=== PATIENT | male | born 1980 | race Caucasian/White ===

== ENCOUNTER 2018-11-15 12:54 | Inpatient (IN) | payer OTHER, MEDICAID ==
[~2018-11-15] VITALS: Ht 177.8 cm; Wt 94.3 kg
--- NOTE | 2018-11-15 12:55 | NUR ---
PT BIB [facility] TO ER BED 11
[2018-11-15 12:57] VITALS: BP 89/42
--- NOTE | 2018-11-15 13:05 | NUR ---
[facility] FOR [facility]YP[facility]ION BP 84/52. PER EMS PT AAOX4 , BLOOD SUGAR 128. EKG NSR. BP 100/50 ON ARRIVAL. PT AAOX 4. HEMODIALYSIS AREA AT RIGHT UPPER CHEST. OLD HEMODIALYSIS SHUNT ON LEFT FOREARM. PT C/O OF SOB. DENIES N/V/D; HR EVEN AND REGULAR; PT DENIES ANY CP OR COUGH AT THIS TIME; PATIENT STATES PAIN OF 0/10 AT THIS TIME; PATIENT POSITIONED FOR COMFORT; HOB ELEVATED; BEDRAILS UP X2; BED DOWN. ER MADE AWARE OF PT STATUS. Addendum: 11/15/18 at 1352 by [facility] HEMODIALYSIS Jose Alberto Cooper F.
--- NOTE | 2018-11-15 13:05 | NUR ---
Note undone in [facility] - 11/15/18 at 1347 by [facility] FOR [facility] BP 84/52. PER EMS PT AAOX4 , BLOOD SUGAR 128. EKG NSR. BP 100/50 ON ARRIVAL. PT AAOX 4. DIALYSIS AREA RIGHT UPPER CHEST. DENIES N/V/D; SKIN IS PINK/WARM/DRY; AAOX4 WITH EVEN AND STEADY GAIT; HR EVEN AND REGULAR; PT DENIES ANY FEVER, CP, SOB, OR COUGH AT THIS TIME; PATIENT STATES PAIN OF 0/10 AT THIS TIME; VSS; PATIENT POSITIONED FOR COMFORT; HOB ELEVATED; BEDRAILS UP X2; BED DOWN. ER MADE AWARE OF PT STATUS. Addendum: 11/15/18 at 1344 by [email or web address] Amendment undone in [facility] - 11/15/18 at 1347 by [facility] HEMODIALYSIS Jose Alberto Cooper F.
[2018-11-15 13:55] LABS: BASOPHILS % (AUTO) 0.4 % (0.0-2.0); EOSINOPHILS # (AUTO) 0.2 K/uL (0-0.4); EOSINOPHILS % (AUTO) 1.5 % (0.0-4.0); HEMATOCRIT 24.3 % (36-52); LYMPHOCYTES # (AUTO) 1.1 K/uL (2.0-11.5); LYMPHOCYTES % (AUTO) 11.3 % (20.5-51.1); MEAN CORPUSCULAR HEMOGLOBIN 32 pg (27-31); MEAN CORPUSCULAR HGB CONC 33 g/dL (33-37); MEAN CORPUSCULAR VOLUME 96.2 fL (80-94); MONOCYTES # (AUTO) 1.1 K/uL (0.8-1.0); MONOCYTES % (AUTO) 10.8 % (1.7-9.3); NEUTROPHILS # (AUTO) 7.7 K/uL (1.8-7.7); PLATELET COUNT (AUTO) 211 K/uL (140-450); RED BLOOD CELL COUNT(AUTO) 2.52 MIL/uL (4.20-6.10); RED CELL DISTRIBUTION WIDTH 16.7 % (11.6-13.7); WHITE BLOOD COUNT (AUTO) 10.1 K/uL (4.8-10.8)
[2018-11-15] MEDS ORDERED: ACETAMINOPHEN 325 MG TAB PO ONE (13:55)
[2018-11-15 14:24] LABS: PROTHROMBIN TIME 10.6 secs (10.8-13.4)
--- NOTE | 2018-11-15 14:25 | NUR ---
PT'S TEMPRATURE IS 99.9.
[2018-11-15 15:04] LABS: CREATINE KINASE MB 1.3 ng/mL (0-3.6)
[2018-11-15 15:15] LABS: ANION GAP 13.8 (8-16); CARBON DIOXIDE 27.9 mmol/L (21-32); POTASSIUM 4.7 mmol/L (3.5-5.1)
[2018-11-15 15:17] LABS: CREATININE 4.7 mg/dL (0.7-1.3)
--- NOTE | 2018-11-15 15:17 | NUR ---
RECEIVED CRITICAL REPORT CREATINE 4.67 FROM JEAN. MEDELLIN MADE AWARE.
[2018-11-15 15:18] LABS: ALBUMIN 2.6 g/dL (3.4-5.0); TOTAL BILIRUBIN 1.4 mg/dL (0.0-1.0)
[2018-11-15] MEDS ORDERED: IBUPROFEN 600 MG TAB PO ONE (16:05)
--- NOTE | 2018-11-15 16:05 | NUR ---
pt's temprature 100.4. made aware.
--- NOTE | 2018-11-15 16:05 | NUR ---
Moni luis in [facility] - 11/15/18 at 1605 by THOMAS pt's temprature 100.4
[2018-11-15] MEDS ORDERED: LEVOFLOXACIN 750 MG/D5W PREMIX 150 ML IV ONE (16:10)
--- NOTE | 2018-11-15 16:31 | NUR ---
pt unable to provide medication list at this time, pt states he started isosorbide and colchicine but does not know dosage.
[2018-11-15] MEDS: NACL 0.9% 1,000 ML IV SCH (16:43)
[2018-11-15] MEDS ORDERED: HYDROcodone/APAP 7.5/325 MG 1 TAB PO PRN (16:45)
[2018-11-15] MEDS ORDERED: DOCUSATE SODIUM 100 MG GELCAP PO PRN (16:45)
[2018-11-15] MEDS ORDERED: MORPHINE SULFATE 2 MG/ML SYR IVP PRN (16:45)
[2018-11-15] MEDS ORDERED: ONDANSETRON 4 MG/2 ML VIAL IM/IVP PRN (16:45)
--- NOTE | 2018-11-15 17:08 | NUR ---
PT TAKEN TO THE FLOOR AT THIS TIME
[2018-11-15 17:13] LABS: MAGNESIUM 1.8 mg/dL (1.8-2.4); PHOSPHORUS 2.4 mg/dL (2.5-4.9); THYROID STIMULATING HORMONE 2.88 uIU/mL (0.34-3.74)
--- NOTE | 2018-11-15 17:20 | NUR ---
Patient will be admitted to care of DR RAMOS. Admited to TELE. Will go to [id number]. Belongings list completed. Report to SENIA SNELL. PT SENT WITH ROBEL , MARIA VICTORIA SWENSON, AND IGNACIO.
[2018-11-15] MEDS ORDERED: ALBUTEROL SULFATE/IPRATROPIU 3 ML SOL IH PRN (17:25)
[2018-11-15] MEDS ORDERED: SODIUM PHOS / POTASSIUM PHOS 1 PKT PDR PO SCH (18:00)
[2018-11-15 18:10] VITALS: BP 107/59
[2018-11-15] MEDS ORDERED: IBUP-1842 PO (18:47)
[2018-11-15] MEDS ORDERED: APIX5TAB PO (18:47)
[2018-11-15] MEDS ORDERED: SYN.05 PO (18:47)
[2018-11-15] MEDS ORDERED: COLC0.6C PO (18:47)
[2018-11-15] MEDS ORDERED: PRED5TAB8 PO (18:47)
--- NOTE | 2018-11-15 19:20 | NUR ---
GAVE BED SIDE REPORT TO STATIONARY STEAM ENGINEER RN. PT IN STABLE CONDITION. LEVAQUIN ITCHY AT SITE. DC LEVAQUIN AND STARTED ROCEPHIN. MADE AWARE. CHANGES MADE TO START ROCEPHIN INSTEAD
--- NOTE | 2018-11-15 19:21 | NUR ---
REPORT RECEIVED FROM AM NURSE AT BEDSIDE. PT IN STABLE CONDITION. AAOX4. INTRODUCED SELF TO PT. BOARD UPDATED. NO COMPLAINTS OF PAIN. NO SOB ON 2L O2 VIA NC. AFEBRILE. PT HAS COMPLAINTS OF ANXIETY. WILL NOTIFY . IV SITE R HAND 18G RUNNING NS@40ML/HR PATENT AND INTACT. SKIN WARM, DRY, AND INTACT WITH NO OPEN WOUNDS. BED LOCKED IN LOW POSITION. CALL NGUYEN WITHIN REACH. SAFETY PRECAUTION IN PLACE. ALL NEEDS MET AT THIS TIME.
[2018-11-15 20:00] VITALS: BP 91/44
[2018-11-15] MEDS ORDERED: AZITHROMYCIN 500 MG INJ VIAL IV ONE (20:15)
[2018-11-15] MEDS: AZITHROMYCIN 250 MG in DEXTROSE 5% 250 ML IV SCH (20:31)
--- NOTE | 2018-11-15 20:31 | NUR ---
ELIQUIS GIVEN PO. AZITHROMYCIN HUNG AND RUNNING. PT TOLERATED WELL. BS 200. 2 UNITS OF HUMALOG GIVEN.
[2018-11-15] MEDS: APIXABAN 2.5 MG TAB PO SCH (20:33)
[2018-11-15] MEDS: BLOOD GLUCOSE MONITORING 1 DEV DEV FS SCH (20:38)
[2018-11-15] MEDS: INSULIN LISPRO SLIDING SCALE 100 UNITS/ML VIAL SUBQ PRN (20:44)
--- NOTE | 2018-11-15 22:04 | NUR ---
BENADRYL GIVEN PO. PT TOLERATED WELL.
--- NOTE | 2018-11-15 23:30 | NUR ---
VS STABLE. NO S/S OF DISTRESS NOTED. NO COMPLAINTS OF PAIN. NO SOB. AFEBRILE. WILL CONTINUE TO MONITOR.
[2018-11-16] VITALS (7 sets, daily range): BP systolic 98–148; BP diastolic 62–86
--- NOTE | 2018-11-16 01:20 | NUR ---
PT SLEEPING COMFORTABLY IN BED BUT AROUSABLE. NO S/S OF DISTRESS NOTED. RESPIRATIONS EVEN, UNLABORED, AND WNL. WILL CONTINUE TO MONITOR.
--- NOTE | 2018-11-16 03:10 | NUR ---
PT SLEEPING BUT AROUSABLE. NO S/S OF DISTRESS NOTED. VS STABLE. SCD'S PLACED. WILL CONTINUE TO MONITOR.
[2018-11-16] MEDS: BLOOD GLUCOSE MONITORING 1 DEV DEV FS SCH ×4 (05:39→21:20)
--- NOTE | 2018-11-16 05:39 | NUR ---
BS 160. 2 UNITS OF HUMALOG GIVEN.
[2018-11-16] MEDS: INSULIN LISPRO SLIDING SCALE 100 UNITS/ML VIAL SUBQ PRN ×4 (05:42→21:29)
[2018-11-16] MEDS ORDERED: DILT-135 PO (06:32)
[2018-11-16] MEDS ORDERED: CARV25TA PO (06:32)
[2018-11-16] MEDS ORDERED: HYDR100T79 PO ×2 (06:32→15:50)
[2018-11-16] MEDS ORDERED: ISOS10TA9 PO (06:32)
[2018-11-16 07:07] LABS: ANION GAP 14.9 (8-16); POTASSIUM 4.9 mmol/L (3.5-5.1)
[2018-11-16 07:11] LABS: BASOPHILS % (AUTO) 0.4 % (0.0-2.0); EOSINOPHILS # (AUTO) 0.1 K/uL (0-0.4); EOSINOPHILS % (AUTO) 1.8 % (0.0-4.0); HEMOGLOBIN 7.7 g/dL (12.0-18.0); LYMPHOCYTES # (AUTO) 1.2 K/uL (2.0-11.5); LYMPHOCYTES % (AUTO) 14.4 % (20.5-51.1); MEAN CORPUSCULAR HEMOGLOBIN 33 pg (27-31); MEAN CORPUSCULAR HGB CONC 33 g/dL (33-37); MEAN CORPUSCULAR VOLUME 97.5 fL (80-94); MONOCYTES # (AUTO) 0.9 K/uL (0.8-1.0); MONOCYTES % (AUTO) 11.4 % (1.7-9.3); NEUTROPHILS # (AUTO) 5.9 K/uL (1.8-7.7); PLATELET COUNT (AUTO) 192 K/uL (140-450); RED BLOOD CELL COUNT(AUTO) 2.36 MIL/uL (4.20-6.10); RED CELL DISTRIBUTION WIDTH 16.3 % (11.6-13.7); WHITE BLOOD COUNT (AUTO) 8.2 K/uL (4.8-10.8)
--- NOTE | 2018-11-16 07:11 | NUR ---
RECEIVED BEDSIDE REPORT FROM SENIA DIAMOND. PT STABLE, AWAKE, ALERT AND ORIENTED X4. NO SIGNS OF DISTRESS NOTED. DENIES PAIN OR SOB. PT SITTING AT THE BEDSIDE CHAIR. NO REDNESS, SWELLING, OR INFLAMMATION NOTED ON IV SITE. CALL NGUYEN WITHIN REACH. BED IN LOWEST POSITION. SAFETY MEASURES IN PLACE. PLAN OF CARE REVIEWED.
--- NOTE | 2018-11-16 07:12 | NUR ---
REPORT GIVEN TO AM NURSE AT BEDSIDE. PT IN STABLE CONDITION.
[2018-11-16 07:18] LABS: MAGNESIUM 1.7 mg/dL (1.8-2.4); PHOSPHORUS 4.2 mg/dL (2.5-4.9)
--- NOTE | 2018-11-16 08:10 | NUR ---
PATIENT HAS BEEN SCREENED AND CATEGORIZED HIGH NUTRITION RISK. PATIENT WILL BE SEEN WITHIN 1-2 DAYS OF ADMISSION. 11/16/18-11/17/[address]
[2018-11-16] MEDS: IBUPROFEN 400 MG TAB PO SCH ×2 (09:00→09:45)
[2018-11-16] MEDS: SODIUM PHOS / POTASSIUM PHOS 1 PKT PDR PO SCH ×2 (09:00→09:44)
--- NOTE | 2018-11-16 09:22 | NUR ---
MADE DR CALDERON AWARE OF MAGNESIUM 1.7. WILL PUT IN ORDER.
[2018-11-16] MEDS: COLCHICINE 0.6 MG TAB PO SCH (09:43)
[2018-11-16] MEDS: LACTOBACILLUS RHAMNOSUS GG 1 EACH CAP PO SCH (09:45)
[2018-11-16] MEDS: LEVOTHYROXINE 0.05 MG TAB PO SCH (09:45)
[2018-11-16] MEDS: APIXABAN 2.5 MG TAB PO SCH ×2 (09:48→21:28)
[2018-11-16] MEDS: predniSONE 5 MG TAB PO SCH (09:51)
--- NOTE | 2018-11-16 10:00 | NUR ---
PT REFUSED PHOS NAK AND IBUPROFEN, ADMINISTERED ALL OTHER SCHEDULED MEDICATIONS, PT TOLERATED WELL. NO OTHER NEEDS AT THIS TIME. FAMILY AT THE BEDSIDE. Addendum: 11/16/18 at 1019 by Imelda Harris RN PT REFUSED IVF, MADE DR CALDERON AWARE. PT SALINE LOCKED AT THIS TIME.
--- NOTE | 2018-11-16 10:10 | NUR ---
DR CALDERON AND FAMILY AT BEDSIDE.
[2018-11-16] MEDS ORDERED: MAGNESIUM OXIDE 400 MG TAB PO SCH (11:00)
[2018-11-16] MEDS: FLUTICASONE NASAL 50 MCG/ACTUATION 16 GM BTL NS SCH (11:19)
--- NOTE | 2018-11-16 11:25 | NUR ---
ADMINISTERED SCHEDULED MEDICATIONS, PT TOLERATED WELL. NO OTHER NEEDS AT THIS TIME.
--- NOTE | 2018-11-16 12:05 | NUR ---
JUDICIAL REGISTRAR KAYLEE AT BEDSIDE.
[2018-11-16] MEDS: SODIUM FERRIC GLUCONATE 125 MG in NACL 0.9% 100 ML IV SCH (12:30)
--- NOTE | 2018-11-16 12:30 | NUR ---
ADMINISTERED SCHEDULED MEDICATION AND PRN BENADRYL FOR ITCHING. ADMINISTERED 8 UNITS HUMALOG FOR BG 329. PT TOLERATED WELL. NO OTHER NEEDS AT THIS TIME.
--- NOTE | 2018-11-16 12:47 | NUR ---
PER DR ALEJANDRO'S HEMODIALYSIS ORDER, ORDER PUT IN FOR ALBUMIN HUMAN 25% ONCE AND HEPARIN SODIUM 10,000 UNITS FOR HEMODIALYSIS PORT ONCE. MAMMAL KEEPER KAYLEE BAZZI.
[2018-11-16] MEDS ORDERED: ALBUMIN HUMAN 25% 50 ML IV SCH (13:00)
--- NOTE | 2018-11-16 14:15 | NUR ---
PT STABLE, HOTEL VALET ATTENDANT STILL AT BEDSIDE. WILL CONTINUE TO MONITOR.
--- NOTE | 2018-11-16 15:07 | NUR ---
11/16/18 RD INITIAL ASSESSMENT COMPLETED PLEASE REFER TO NUTRITION ASSESSMENT UNDER CARE ACTIVITY FOR ESTIMATED NUTRITIONAL NEEDS. 1. CONTINUE CCHO 60 RENAL DIET TOLERATED 2. RENAL DIET EDUCATION WAS PROVIDED 3. RECOMMEND NEPRO QD 4. RD TO FOLLOW-UP 3-5 DAYS, MODERATE RISK NIKOLAY SNEED, RD
--- NOTE | 2018-11-16 15:15 | NUR ---
DIALYSIS JUST FINISHED, PT STABLE. PER AIRCRAFT REFUELLER JUSTIN, ALBUMIN NOT GIVEN DUE TO BP IS 160/72. WILL CONTINUE TO MONITOR PT. Addendum: 11/16/18 at 1521 by Imelda Harris RN REMINDED PT REGARDING SPUTUM CULTURE PER MD ORDER. NO SPUTUM PRODUCED AT THIS TIME PER PT. WILL CONTINUE TO FOLLOW UP.
--- NOTE | 2018-11-16 15:20 | NUR ---
PER PUTTY GLAZER, 2,500 ML OUTPUT FROM HEMODIALYSIS.
[2018-11-16] MEDS ORDERED: hydrALAZINE 25 MG TAB PO SCH (16:00)
[2018-11-16] MEDS: NACL 0.9% 1,000 ML IV SCH (16:24)
--- NOTE | 2018-11-16 16:25 | NUR ---
VITAL SIGNS TAKEN, PT STABLE. PER DR CALDERON, HOLD SCHEDULED HYDRALAZINE AT THIS TIME FOR BP 146/77. PT REFUSED IVF, SALINE LOCKED AT THIS MOMENT. WILL CONTINUE TO MONITOR PT.
[2018-11-16] MEDS ORDERED: IBUPROFEN 400 MG TAB PO SCH (17:00)
[2018-11-16 17:13] LABS: T4 (THYROXINE) 6.8 ug/dL (4.5 - 12.0)
[2018-11-16 17:15] LABS: HEPATITIS A ANTIBODY IGM NEGATIVE (NEGATIVE); HEPATITIS B CORE AB TOTAL NEGATIVE (NEGATIVE); HEPATITIS B SURFACE ANTIGEN NEGATIVE (NEGATIVE)
[2018-11-16 17:16] LABS: HEPATITIS B SURFACE ANTIBODY REACTIVE (NONREACTIVE)
[2018-11-16] MEDS: ACETAMINOPHEN 325 MG TAB PO PRN (17:22)
--- NOTE | 2018-11-16 17:38 | NUR ---
ADMINISTERED SCHEDULED CEFTRIAXONE AND PRN TYLENOL FOR TEMP 100.7. ADMINISTERED 6 UNITS HUMALOG FOR BG 270. PT TOLERATED WELL. NO OTHER NEEDS AT THIS TIME.
--- NOTE | 2018-11-16 18:00 | NUR ---
ICE PACKS PROVIDED TO PT TO AID LOWERING DOWN TEMP.
--- NOTE | 2018-11-16 18:49 | NUR ---
TEMP RECHECKED, 99.8. WILL CONTINUE TO MONITOR PT.
--- NOTE | 2018-11-16 19:10 | NUR ---
ENDORSED PT TO RN BRAULIO FOR CONTINUITY OF CARE. PT STABLE.
--- NOTE | 2018-11-16 19:20 | NUR ---
RECEIVED FROM AM RN IN BED WITH FAMILY MEMBER IN HERE VISITING. ALERT AND ORIENTED. VERBALIZES WELL. NO SOB. DENIES ANY PAIN AT THIS TIME. ON TELEMETRY MONITORING. CALL LIGHT WITH IN REACH AND CARE PLAN DISCUSSED WITH THEM. HEPLOCKED AT THIS TIME.
[2018-11-16] MEDS: hydrALAZINE 25 MG TAB PO SCH (21:00)
[2018-11-16] MEDS: AZITHROMYCIN 250 MG in DEXTROSE 5% 250 ML IV SCH (21:06)
[2018-11-16] MEDS: CARVEDILOL 12.5 MG TAB PO SCH (21:19)
[2018-11-16] MEDS: INSULIN LANTUS 100 UNITS/ML 10 ML VIAL SUBQ SCH (21:24)
--- NOTE | 2018-11-16 21:32 | NUR ---
HYDRALAZINE P.O. NOT ADMINISTERED RT PER PT. HE WAS TOLD BY NOT TO TAKE IT FOR NOW. AT BEDSIDE AND AGREES WITH PT. AWAKE AND ALERT. ORIENTED X 4. CLEAR SPEECH. ABLE TO CARRY A CONVERSATION WELL. SITTING AT EDGE OF BED AT THIS TIME AND WATCHING TV.
--- NOTE | 2018-11-16 21:49 | NUR ---
LATEST TEMPERATURE TAKEN PER ORAL 100.5 . PER PT. HE DOES NOT FEEL HE HAS FEVER. PROVIDED WITH COLD COMPRESS TO HEAD AND SPONGE BATH . AT BEDSIDE ATTENDING TO PT. IVF SITE INTACT AND WITH GOOD BLOOD RETURN. PRESENTLY WITH IV ABT . PT. A/O X 4. ROM X 4. CLEAR SPEECH. ENCOURAGED TO CALL FOR ANY HELP HE MAY HAVE OR IF IN PAIN. "OK"
--- NOTE | 2018-11-16 23:12 | NUR ---
PT. AMBULATING AT THIS TIME INSIDE ROOM. INSIDE ROOM. PT. EATING A SNACK PROVIDED BY . ENCOURAGED TO CALL FOR ANY HELP THEY MAY NEED OR IF IN PAIN. "OK"
--- NOTE | 2018-11-17 01:44 | NUR ---
PT. STILL AWAKE AT THIS TIME. WENT HOME. ENCOURAGED TO REST AND SLEEP. "I AM NOT SLEEPY". CALL LIGHT WITH IN REACH. TELEMETRY MONITORING. NO RESTLESSNESS. NO SOB. DENIES PAIN AT THIS TIME.
--- NOTE | 2018-11-17 03:00 | NUR ---
CONFIRMED WITH RESIDENT MD WARD RE: HYDRALAZINE MEDICATION OF PT. ON HOLD AND THAT PT. REFUSED TO TAKE IT. PER RESIDENT MD HE WAS AWARE OF IT TO BE HELD FROM AM MD. "JUST HOLD IT"
[2018-11-17 04:25] VITALS: BP 102/49
[2018-11-17] MEDS: hydrALAZINE 25 MG TAB PO SCH ×3 (05:00→20:38)
[2018-11-17] MEDS: BLOOD GLUCOSE MONITORING 1 DEV DEV FS SCH ×4 (06:12→20:37)
[2018-11-17] MEDS: ACETAMINOPHEN 325 MG TAB PO PRN (06:13)
[2018-11-17] MEDS: INSULIN LISPRO SLIDING SCALE 100 UNITS/ML VIAL SUBQ PRN ×4 (06:13→20:41)
--- NOTE | 2018-11-17 06:14 | NUR ---
PT. STATED HE FEELS WARM. RE-CHECKED TEMPERATURE PER ORAL =100. REQUESTED FOR TYLENOL P.O. ORDERED.
--- NOTE | 2018-11-17 07:02 | NUR ---
PT. SITTING IN CHAIR AT THIS TIME WATCHING TV. A/O X 4. CLEAR SPEECH. WILL ENDORSE TO THE NEXT RN FOR CONTINUITY OF CARE.
--- NOTE | 2018-11-17 07:05 | NUR ---
RECEIVED BEDSIDE REPORT FROM SENIA RAMSEY. PT STABLE, AWAKE, ALERT AND ORIENTED X4. NO SIGNS OF DISTRESS NOTED. DENIES PAIN OR SOB. PT SITTING AT THE BEDSIDE CHAIR. NO REDNESS, SWELLING, OR INFLAMMATION NOTED ON IV SITE. CALL NGUYEN WITHIN REACH. BED IN LOWEST POSITION. SAFETY MEASURES IN PLACE. PLAN OF CARE REVIEWED.
[2018-11-17 07:36] LABS: BASOPHILS % (AUTO) 0.3 % (0.0-2.0); EOSINOPHILS # (AUTO) 0.1 K/uL (0-0.4); EOSINOPHILS % (AUTO) 0.8 % (0.0-4.0); HEMATOCRIT 24.2 % (36-52); HEMOGLOBIN 7.9 g/dL (12.0-18.0); LYMPHOCYTES # (AUTO) 1.1 K/uL (2.0-11.5); MEAN CORPUSCULAR HEMOGLOBIN 32 pg (27-31); MEAN CORPUSCULAR HGB CONC 33 g/dL (33-37); MEAN CORPUSCULAR VOLUME 97.1 fL (80-94); MONOCYTES # (AUTO) 0.9 K/uL (0.8-1.0); MONOCYTES % (AUTO) 9.2 % (1.7-9.3); NEUTROPHILS # (AUTO) 7.6 K/uL (1.8-7.7); NEUTROPHILS % (AUTO) 78.7 % (42.2-75.2); PLATELET COUNT (AUTO) 228 K/uL (140-450); RED BLOOD CELL COUNT(AUTO) 2.49 MIL/uL (4.20-6.10); RED CELL DISTRIBUTION WIDTH 16.4 % (11.6-13.7); WHITE BLOOD COUNT (AUTO) 9.7 K/uL (4.8-10.8)
[2018-11-17 07:40] LABS: ANION GAP 16.1 (8-16); CARBON DIOXIDE 26.7 mmol/L (21-32); PHOSPHORUS 5.1 mg/dL (2.5-4.9); POTASSIUM 4.8 mmol/L (3.5-5.1)
[2018-11-17 08:00] VITALS: BP 114/63
[2018-11-17 08:13] LABS: CREATININE 5.8 mg/dL (0.7-1.3)
[2018-11-17] MEDS: CARVEDILOL 12.5 MG TAB PO SCH ×2 (09:00→20:21)
[2018-11-17] MEDS ORDERED: EPOETIN ALFA 10,000 UNITS/ML VIAL IV SCH (09:00)
--- NOTE | 2018-11-17 09:25 | NUR ---
PT SIGNED CONSENT FOR HEMODIALYSIS TODAY.
[2018-11-17] MEDS: FLUTICASONE NASAL 50 MCG/ACTUATION 16 GM BTL NS SCH (09:26)
[2018-11-17] MEDS: LEVOTHYROXINE 0.05 MG TAB PO SCH (09:27)
[2018-11-17] MEDS: LACTOBACILLUS RHAMNOSUS GG 1 EACH CAP PO SCH (09:31)
[2018-11-17] MEDS: VIT-B COMP/VIT-C/FOLIC ACID 1 TAB PO SCH (09:32)
[2018-11-17] MEDS: COLCHICINE 0.6 MG TAB PO SCH (09:32)
[2018-11-17] MEDS: predniSONE 5 MG TAB PO SCH (09:32)
[2018-11-17] MEDS: LORATADINE 10 MG TAB PO SCH (09:33)
[2018-11-17] MEDS: APIXABAN 2.5 MG TAB PO SCH ×2 (09:35→20:22)
--- NOTE | 2018-11-17 09:40 | NUR ---
SCHEDULED CARVEDILOL NOT GIVEN DUE TO PT IS SCHEDULED FOR DIALYSIS TODAY. ADMINISTERED ALL OTHER SCHEDULED MEDICATIONS. PT TOLERATED WELL. NO OTHER NEEDS AT THIS TIME.
--- NOTE | 2018-11-17 10:20 | NUR ---
CALLED WILLIAM ORTIZ TO CONFIRM PT'S DIALYSIS TODAY. PER WILLIAM ORTIZ, HER STAFF WILL BE IN THE UNIT FOR DIALYSIS AROUND 3-6 PM.
[2018-11-17 12:00] VITALS: BP 147/53
[2018-11-17] MEDS: SODIUM FERRIC GLUCONATE 125 MG in NACL 0.9% 100 ML IV SCH (12:43)
--- NOTE | 2018-11-17 12:45 | NUR ---
ADMINISTERED SCHEDULED MEDICATION AND 6 UNITS HUMALOG FOR BG 280. HELD SCHEDULED HYDRALAZINE DUE TO PT IS SCHEDULED FOR DIALYSIS TODAY. PT TOLERATED WELL. WILL CONTINUE TO MONITOR.
--- NOTE | 2018-11-17 14:10 | NUR ---
PT STABLE, SLEEPING, BUT EASILY AROUSABLE. NO SIGNS OF DISTRESS NOTED. CHEST RISE AND FALL VISIBLY NOTED.
--- NOTE | 2018-11-17 14:49 | NUR ---
PATIENT COMPLAINS OF ITCHING. BENADRYL GIVEN. WILL CONTINUE TO MONITOR.
[2018-11-17 16:00] VITALS: BP 158/85
[2018-11-17] MEDS: NACL 0.9% 1,000 ML IV SCH (16:43)
--- NOTE | 2018-11-17 16:45 | NUR ---
VITAL SIGNS TAKEN, PT STABLE. PT REFUSED IVF. WILL CONTINUE TO MONITOR PT.
[2018-11-17] MEDS ORDERED: IBUPROFEN 400 MG TAB PO SCH (17:00)
--- NOTE | 2018-11-17 17:35 | NUR ---
ADMINISTERED SCHEDULED MEDICATION AND 4 UNITS HUMALOG FOR BG 210. PT TOLERATED WELL.
--- NOTE | 2018-11-17 18:25 | NUR ---
DIALYSIS COMPLETED, OUTPUT IS 2,500 ML. PT STABLE. FAMILY AT THE BEDSIDE.
--- NOTE | 2018-11-17 19:10 | NUR ---
ENDORSED PT TO RN BRAULIO FOR CONTINUITY OF CARE. PT STABLE.
--- NOTE | 2018-11-17 19:24 | NUR ---
RECEIVED FROM AM RN IN BED TRYING TO GO TO SLEEP. ABLE TO CARRY A CONVERSATION WITH ME WELL. SPEAKS GOOD ZAMBIAN. NO SOB COMPLAINT AT THIS TIME. NO PAIN COMPLAINT. REMINDED TO USE CALL LIGHT FOR NAY SOB SHE MIGHT HAVE OR IF IN PAIN AND IF SHE NEEDS HELP. TELEMETRY MONITORING. CARE PLANS FOR THE NIGHT DISCUSSED WITH HER. A/O X 4. DX. ASTHMA EXACERBATION. Addendum: 11/17/18 at 1933 by Sandy Montalvo RN ABOVE CHARTING DX. ERROR. DX. OF FEVER, PNA AND HYPOTENSION. HD DONE TODAY.
[2018-11-17] MEDS: AZITHROMYCIN 250 MG in DEXTROSE 5% 250 ML IV SCH (20:21)
[2018-11-17 20:23] VITALS: BP 151/72
[2018-11-17] MEDS: INSULIN LANTUS 100 UNITS/ML 10 ML VIAL SUBQ SCH (20:40)
--- NOTE | 2018-11-17 20:42 | NUR ---
PT. IN BED SITTING UP WITH FAMILY MEMBERS AROUND VISITING. DENIES ANY PAIN. NO COMPLAINTS AT THIS TIME. BLOOD SUGAR CHECK PER FINGERSTICK 240. COVERED WITH HUMALOG AND LANTUS ORDERED.
[2018-11-17 23:36] VITALS: BP 146/78
--- NOTE | 2018-11-17 23:37 | NUR ---
WENT HOME. NO COMPLAINTS DONE. PT. STILL AWAKE AND WATCHING TV. ABLE TO VERBALIZE NEEDS WELL . ROM X 4. CLEAR SPEECH. ORIENTED X 4. HD DONE IN AM SHIFT. NO COMPLAINT . DRESSING TO HD SITE INTACT. NO BLEEDING.
--- NOTE | 2018-11-18 02:00 | NUR ---
PT. SLEEPING AT THIS TIME. NO RESTLESSNESS NOTED. CALL LIGHT WITH IN REACH. TELEMETRY MONITORING.
[2018-11-18 04:12] VITALS: BP 145/78
[2018-11-18] MEDS: hydrALAZINE 25 MG TAB PO SCH ×3 (05:00→19:59)
--- NOTE | 2018-11-18 06:00 | NUR ---
AWAKE AND ALERT. NO COMPLAINTS DONE. WILL ENDORSE TO NEXT AM RN FOR CONTINUITY OF CARE. PT. ABLE TO USE CALL LIGHT FOR HELP.
[2018-11-18] MEDS: BLOOD GLUCOSE MONITORING 1 DEV DEV FS SCH ×4 (07:30→20:00)
[2018-11-18 08:00] VITALS: BP 146/78
[2018-11-18 08:15] LABS: ANION GAP 13.6 (8-16); CARBON DIOXIDE 28.6 mmol/L (21-32); POTASSIUM 4.2 mmol/L (3.5-5.1)
[2018-11-18 08:18] LABS: MAGNESIUM 1.6 mg/dL (1.8-2.4); PHOSPHORUS 4.3 mg/dL (2.5-4.9)
[2018-11-18 08:19] LABS: BASOPHILS % (AUTO) 0.3 % (0.0-2.0); EOSINOPHILS # (AUTO) 0.1 K/uL (0-0.4); EOSINOPHILS % (AUTO) 1.3 % (0.0-4.0); HEMATOCRIT 24.1 % (36-52); HEMOGLOBIN 7.9 g/dL (12.0-18.0); LYMPHOCYTES % (AUTO) 12.1 % (20.5-51.1); MEAN CORPUSCULAR HEMOGLOBIN 31 pg (27-31); MEAN CORPUSCULAR HGB CONC 33 g/dL (33-37); MEAN CORPUSCULAR VOLUME 95.4 fL (80-94); MONOCYTES # (AUTO) 0.9 K/uL (0.8-1.0); NEUTROPHILS # (AUTO) 6.6 K/uL (1.8-7.7); NEUTROPHILS % (AUTO) 76.3 % (42.2-75.2); PLATELET COUNT (AUTO) 254 K/uL (140-450); RED BLOOD CELL COUNT(AUTO) 2.53 MIL/uL (4.20-6.10); RED CELL DISTRIBUTION WIDTH 16.7 % (11.6-13.7); WHITE BLOOD COUNT (AUTO) 8.6 K/uL (4.8-10.8)
[2018-11-18 08:49] LABS: CREATININE 4.6 mg/dL (0.7-1.3)
--- NOTE | 2018-11-18 09:40 | NUR ---
MADE DR WILBURN AWARE OF MAGNESIUM 1.6. WILL PUT IN NEW ORDERS.
--- NOTE | 2018-11-18 10:20 | NUR ---
SCHEDULED 0500 HYDRALAZINE NOT GIVEN BY PM SENIA RAMSEY. MEDITECH WAS DOWN AT THIS TIME. PLEASE REFER TO PAPER CHART. ALSO REFER TO PAPER CHART FOR 0730 BLOOD GLUCOSE LEVEL TAKEN BY PM SENIA RAMSEY.
[2018-11-18] MEDS: FLUTICASONE NASAL 50 MCG/ACTUATION 16 GM BTL NS SCH (10:30)
[2018-11-18] MEDS: VIT-B COMP/VIT-C/FOLIC ACID 1 TAB PO SCH (10:30)
[2018-11-18] MEDS: LACTOBACILLUS RHAMNOSUS GG 1 EACH CAP PO SCH (10:31)
[2018-11-18] MEDS: CARVEDILOL 12.5 MG TAB PO SCH ×2 (10:31→19:59)
[2018-11-18] MEDS: COLCHICINE 0.6 MG TAB PO SCH (10:32)
[2018-11-18] MEDS: LORATADINE 10 MG TAB PO SCH (10:32)
[2018-11-18] MEDS: predniSONE 5 MG TAB PO SCH (10:32)
[2018-11-18] MEDS: LEVOTHYROXINE 0.05 MG TAB PO SCH (10:32)
[2018-11-18] MEDS: APIXABAN 2.5 MG TAB PO SCH ×2 (10:34→20:12)
--- NOTE | 2018-11-18 10:38 | NUR ---
ADMINISTERED ALL SCHEDULED MEDICATIONS, PT TOLERATED WELL. NO OTHER NEEDS AT THIS TIME. FAMILY AT THE BEDSIDE.
[2018-11-18 12:00] VITALS: BP 115/55
--- NOTE | 2018-11-18 12:10 | NUR ---
VITAL SIGNS TAKEN, PT STABLE. FAMILY AT THE BEDSIDE. NO OTHER NEEDS AT THIS TIME.
[2018-11-18] MEDS: INSULIN LISPRO SLIDING SCALE 100 UNITS/ML VIAL SUBQ PRN ×3 (13:04→20:11)
[2018-11-18 13:15] VITALS: BP 136/61
[2018-11-18] MEDS: SODIUM FERRIC GLUCONATE 125 MG in NACL 0.9% 100 ML IV SCH (13:18)
--- NOTE | 2018-11-18 13:20 | NUR ---
BP TAKEN, 136/61 HR 77. ADMINISTERED SCHEDULED MEDICATIONS AND 2 UNITS HUMALOG FOR BG 187. PT TOLERATED WELL. NO OTHER NEEDS AT THIS TIME.
[2018-11-18] MEDS ORDERED: MAGNESIUM OXIDE 400 MG TAB PO SCH (14:51)
--- NOTE | 2018-11-18 15:58 | NUR ---
ADMINISTERED SCHEDULED MEDICATION, PT TOLERATED WELL. FAMILY AT THE BEDSIDE. NO OTHER NEEDS AT THIS MOMENT.
[2018-11-18 16:00] VITALS: BP 147/78
[2018-11-18] MEDS: NACL 0.9% 1,000 ML IV SCH (16:27)
--- NOTE | 2018-11-18 17:50 | NUR ---
ADMINISTERED SCHEDULED CEFTRIAXONE AND 10 UNITS HUMALOG FOR BG 393. PT TOLERATED WELL. FAMILY AT THE BEDSIDE. PT STABLE.
--- NOTE | 2018-11-18 19:05 | NUR ---
ENDORSED PT TO RN SUMMER FOR CONTINUITY OF CARE. PT STABLE.
--- NOTE | 2018-11-18 19:30 | NUR ---
RECEIVED BEDSIDE REPORT FROM DAY SHIFT RN FLACO LIPSCOMB, PATIENT SITTING ON CHAIR, FAMILY NEAR BEDSIDE, TRISTANIAN SPEAKING, AAOX4 ABLE TO FOLLOW COMMANDS, NO SIGNS OF ACUTE DISTRESS, DENIES PAIN, V/S STABLE, SR ON TELE MONITOR. IV IN RIGHT WRIST 22 G INFUSING NS AT 10 ML/HR. RIGHT UPPER ARM TUNNELED CATH, DRESSING INTACT, LEFT AV SHUNT, PATIENT STATED IS NOT WORKING. LUNG SOUNDS CLEAR, SKIN INTACT, PATIENT STATED HE HAD BM TODAY. EXPLAINED PLAN OF CARE, WILL CONTINUE TO MONITOR.
[2018-11-18 20:00] VITALS: BP 136/77
[2018-11-18] MEDS: AZITHROMYCIN 250 MG in DEXTROSE 5% 250 ML IV SCH (20:00)
[2018-11-18] MEDS: INSULIN LANTUS 100 UNITS/ML 10 ML VIAL SUBQ SCH (20:11)
--- NOTE | 2018-11-18 20:15 | NUR ---
DUE MEDICATIONS GIVEN, BG 259 GAVE 6 UNITS HUMALOG AND 20 UNITS LANTUS.
--- NOTE | 2018-11-18 22:30 | NUR ---
PATIENT REFUSED NS INFUSION WANTED TO BE SL, EDUCATION PROVIDED.
[2018-11-19] VITALS: BP 148/74
--- NOTE | 2018-11-19 00:30 | NUR ---
V/S TAKEN ALL WITHIN BASELINE, PATIENT DENIES PAIN
--- NOTE | 2018-11-19 02:30 | NUR ---
PATIENT SLEEPING, NO SIGNS OF DISTRESS, WILL CONTINUE TO MONITOR.
[2018-11-19 03:49] VITALS: BP 158/75
--- NOTE | 2018-11-19 04:30 | NUR ---
BP 158/75 WILL GIVE HYDRALAZINE
[2018-11-19] MEDS: hydrALAZINE 25 MG TAB PO SCH (04:49)
--- NOTE | 2018-11-19 06:00 | NUR ---
BG 136 NO COVERAGE NEEDED
[2018-11-19] MEDS: BLOOD GLUCOSE MONITORING 1 DEV DEV FS SCH ×2 (06:02→11:30)
--- NOTE | 2018-11-19 07:16 | NUR ---
ENDORSED PATIENT TO DAY SHIFT NURSE, PATIENT STABLE.
--- NOTE | 2018-11-19 07:18 | NUR ---
RECEIVED BEDSIDE REPORT FROM BAD WORK GATHERER NURSE FOR CONTINUITY OF CARE. PATIENT ASLEEP. AAOX4 ABLE TO FOLLOW COMMANDS, NO SIGNS OF ACUTE DISTRESS, SR ON TELE MONITOR. IV IN RIGHT WRIST 22 G INFUSING NS AT 10 ML/HR. RIGHT UPPER ARM TUNNELED CATH, DRESSING INTACT, LEFT AV SHUNT, PATIENT STATED IS NOT WORKING. LUNG SOUNDS CLEAR, SKIN INTACT, SAFETY PRECAUTIONS IN PLACE, CALL LIGHT WITHIN REACH, WILL CONTINUE TO MONITOR PATIENT.
[2018-11-19 07:24] LABS: BASOPHILS % (AUTO) 0.6 % (0.0-2.0); EOSINOPHILS # (AUTO) 0.1 K/uL (0-0.4); EOSINOPHILS % (AUTO) 1.8 % (0.0-4.0); HEMATOCRIT 24.5 % (36-52); HEMOGLOBIN 7.9 g/dL (12.0-18.0); LYMPHOCYTES # (AUTO) 1.1 K/uL (2.0-11.5); LYMPHOCYTES % (AUTO) 14.8 % (20.5-51.1); MEAN CORPUSCULAR HEMOGLOBIN 31 pg (27-31); MEAN CORPUSCULAR HGB CONC 32 g/dL (33-37); MEAN CORPUSCULAR VOLUME 95.4 fL (80-94); MONOCYTES # (AUTO) 0.9 K/uL (0.8-1.0); MONOCYTES % (AUTO) 12.5 % (1.7-9.3); NEUTROPHILS # (AUTO) 5.1 K/uL (1.8-7.7); NEUTROPHILS % (AUTO) 70.3 % (42.2-75.2); PLATELET COUNT (AUTO) 248 K/uL (140-450); RED BLOOD CELL COUNT(AUTO) 2.56 MIL/uL (4.20-6.10); RED CELL DISTRIBUTION WIDTH 16.2 % (11.6-13.7); WHITE BLOOD COUNT (AUTO) 7.2 K/uL (4.8-10.8)
--- NOTE | 2018-11-19 07:40 | NUR ---
DOCTORS DOING THEIR ROUNDS. PATIENT AWAKE AND VERBALIZED UNDERSTANDING ABOUT DISCHARGE TODAY. VERBALIZED PLAN OF CARE WITH PATIENT, HE VERBALIZED UNDERSTANDING. WILL CONTINUE TO MONITOR PATIENT.
[2018-11-19 07:44] LABS: ANION GAP 16.5 (8-16); POTASSIUM 4.5 mmol/L (3.5-5.1)
[2018-11-19 07:56] LABS: MAGNESIUM 1.8 mg/dL (1.8-2.4); PHOSPHORUS 5.5 mg/dL (2.5-4.9)
[2018-11-19 08:00] VITALS: BP 158/77
[2018-11-19 08:21] LABS: CREATININE 6.3 mg/dL (0.7-1.3)
[2018-11-19] MEDS: FLUTICASONE NASAL 50 MCG/ACTUATION 16 GM BTL NS SCH (08:33)
[2018-11-19] MEDS: LORATADINE 10 MG TAB PO SCH (08:33)
[2018-11-19] MEDS: VIT-B COMP/VIT-C/FOLIC ACID 1 TAB PO SCH (08:34)
[2018-11-19] MEDS: predniSONE 5 MG TAB PO SCH (08:34)
[2018-11-19] MEDS: LACTOBACILLUS RHAMNOSUS GG 1 EACH CAP PO SCH (08:34)
[2018-11-19] MEDS: COLCHICINE 0.6 MG TAB PO SCH (08:34)
[2018-11-19] MEDS: CARVEDILOL 12.5 MG TAB PO SCH (08:34)
[2018-11-19] MEDS: LEVOTHYROXINE 0.05 MG TAB PO SCH (08:34)
--- NOTE | 2018-11-19 08:35 | NUR ---
ORDERED MEDICATIONS GIVEN. PATIENT TOLERATED THEM WELL. NO SIGN OF DISTRESS NOTED. PATIENT DENIES PAIN. UPDATED PATIENT ABOUT DISCHARGE, HE VERBALIZED UNDERSTANDING. NO COMPLAINTS AT THIS TIME. WILL CONTINUE TO MONITOR PATIENT.
[2018-11-19] MEDS: APIXABAN 2.5 MG TAB PO SCH (08:36)
[2018-11-19 09:23] LABS: FOLIC ACID 6.5 ng/mL (>3.0)
[2018-11-19] MEDS ORDERED: IBUP-2213 PO (09:52)
--- NOTE | 2018-11-19 10:00 | NUR ---
UPDATED PATIENT ABOUT DISCHARGE ORDER. AT BEDSIDE. PATIENT AGREEABLE WITH 1200 DISCHARGE TIME. NO COMPLAINTS AT THIS TIME. WILL CONTINUE TO MONITOR PATIENT.
[2018-11-19] MEDS ORDERED: AZIT250T11 PO (10:01)
--- NOTE | 2018-11-19 11:45 | NUR ---
BLOOD SUGAR 224, COVERAGE GIVEN. DISCHARGE EDUCATION AND INSTRUCTIONS GIVEN. PATIENT AWARE ABOUT MD FOLLOW UP APPOINTMENT, WHERE TO QUALITY SUPERVISOR PRESCRIPTION MEDICATIONS, AND TO TAKE ALL MEDICATIONS PRESCRIBED. PATIENT AND VERBALIZED UNDERSTANDING, IV REMOVED, IV CATHETER INTACT, MINIMAL BLEEDING NOTED. ID BANDS CUT. TELE MONITOR REMOVED. PATIENT NOW WILL CHANGE INTO OWN CLOTHES TO BE DISCHARGED HOME WITH .
[2018-11-19] MEDS: INSULIN LISPRO SLIDING SCALE 100 UNITS/ML VIAL SUBQ PRN (11:46)
--- NOTE | 2018-11-19 12:00 | NUR ---
PATIENT AMBULATED OFF FLOOR WITH TO BE DISCHARGED HOME. PATIENT IN STABLE CONDITION. PATIENT TOOK ALL HIS BELONGING WITH HIM.
== END 2018-11-19 12:00 | disposition home or self-care (01) | DRG 871 ==
LOC: MED 12:54 → MTU 16:43
PROVIDERS: ADMIT General Practice; ATTEND General Practice
PROC: 5A1D70Z Performance of Urinary Filtration, Intermittent, Less than 6 Hours Per Day (ICD-10-PCS; principal; 2018-11-16)
PROC: 5A1D70Z Performance of Urinary Filtration, Intermittent, Less than 6 Hours Per Day (ICD-10-PCS; 2018-11-17)
DX: A41.9 Sepsis, unspecified organism (principal); J18.9 Pneumonia, unspecified organism; N17.0 Acute kidney failure with tubular necrosis; E43 Unspecified severe protein-calorie malnutrition; N18.6 End stage renal disease; I12.0 Hypertensive chronic kidney disease with stage 5 chronic kidney disease or end stage renal disease; I31.3 Pericardial effusion (noninflammatory); Z94.0 Kidney transplant status; D64.9 Anemia, unspecified; E03.9 Hypothyroidism, unspecified; E10.21 Type 1 diabetes mellitus with diabetic nephropathy; E10.22 Type 1 diabetes mellitus with diabetic chronic kidney disease; E87.70 Fluid overload, unspecified; D50.9 Iron deficiency anemia, unspecified; E83.39 Other disorders of phosphorus metabolism; E83.42 Hypomagnesemia; K76.0 Fatty (change of) liver, not elsewhere classified; I95.9 Hypotension, unspecified; Z98.49 Cataract extraction status, unspecified eye; Z90.49 Acquired absence of other specified parts of digestive tract; Z68.25 Body mass index [BMI] 25.0-25.9, adult; Z86.718 Personal history of other venous thrombosis and embolism; Z99.2 Dependence on renal dialysis
CPT/HCPCS: 36415; 70486; 71045; 71046; 76604; 76705; 80048; 80053; 82140; 82150; 82272; 82550; 82553; 82607; 82728; 82746; 82948; 83036; 83540; 83605; 83690; 83735; 83880; 84100; 84436; 84443; 84479; 84484; 85025; 85045; 85610; 85730; 86704; 86706; 86708; 86709; 86803; 87040; 87081; 87340; 90935; 93005; 96365; 97116; 97161-GP; 99285; J0456; J0696; J0885; J1644; J1815; J1956; J2916; J7030; J7060; J7512; P9046; Q0092; Q0163

== ENCOUNTER 2018-11-20 03:07 | Emergency (ER) | payer OTHER, MEDICAID ==
[~2018-11-20] VITALS: Ht 177.8 cm; Wt 127.0 kg
[~2018-11-20 03:07] MED LIST: APIX5TAB PO; AZIT250T11 PO; CARV25TA PO; COLC0.6C PO; DILT-135 PO; HYDR100T79 PO; IBUP-1842 PO; IBUP-2213 PO; ISOS10TA9 PO; PRED5TAB8 PO; SYN.05 PO
[2018-11-20 03:14] VITALS: BP 181/101
--- NOTE | 2018-11-20 03:24 | NUR ---
38 Y/O MALE, BIB EMS, PRESENTS TO ED WITH C/O GENERALIZED WEAKNESS AND LETHARGY X1 HR. PT WAS DISCHARGED FROM [facility] ON 11/19/18. HE STATES TAKING MEDICATION AT HOME WHEN HE STARTED FEELING THIS WAY. CALLED 911. HX OF HTN, DM, AND DIALYSIS ON MON, WED, FRI. HAS CENTRAL LINE. LEFT ARM SHUNT NOT IN USE. PLACED IN BED FOR COMFORT WITH VSS. ER MD MADE AWARE. CONTINUE TO MONITOR. FAMILY AT BEDSIDE.
--- NOTE | 2018-11-20 03:24 | NUR ---
PT TERESA NANCES. PT TAKEN TO BED 1
--- NOTE | 2018-11-20 04:56 | NUR ---
PT IN BED RESTING WITH EYES OPEN. FAMILY AT BEDSIDE. NO PAIN. VSS. PT STATES DIZZINESS HAS IMPROVED. CONTINUE TO MONITOR.
[2018-11-20 05:53] VITALS: BP 143/73
--- NOTE | 2018-11-20 05:53 | NUR ---
DISCHAR PAPERS GIVEN TO PT. 0/10 PAIN. NO DIZZINESS OR WEAKNESS. VSS. INSTRUCTED TO F/U WITH PCP AND WHEN TO RETURN TO ER. PT VERBALLIZED UNDERSTANDING OF DC INSTRUCTIONS. ALL QUESTIONS ANSWERED.
== END 2018-11-20 05:53 | disposition home or self-care (01) ==
LOC: MED 03:07
DX: R40.4 Transient alteration of awareness (principal); T45.0X5A Adverse effect of antiallergic and antiemetic drugs, initial encounter; I12.0 Hypertensive chronic kidney disease with stage 5 chronic kidney disease or end stage renal disease; N18.6 End stage renal disease; Z90.49 Acquired absence of other specified parts of digestive tract; Z94.9 Transplanted organ and tissue status, unspecified; Z79.01 Long term (current) use of anticoagulants; Z79.2 Long term (current) use of antibiotics; Z79.899 Other long term (current) drug therapy; Z88.1 Allergy status to other antibiotic agents; Z99.2 Dependence on renal dialysis; Y92.89 Other specified places as the place of occurrence of the external cause
CPT/HCPCS: 82948; 99283

== ENCOUNTER 2021-04-19 23:55 | Inpatient (IN) | payer OTHER, MEDICAID, SELFPAY ==
[~2021-04-19] VITALS: Ht 177.8 cm; Wt 99.8 kg
[~2021-04-19 23:55] MED LIST changes: -IBUP-1842 PO
[2021-04-20] VITALS: BP 201/91
--- NOTE | 2021-04-20 00:09 | NUR ---
PT TAKEN TO BED 10
[2021-04-20] MEDS ORDERED: ACETAMINOPHEN 325 MG TAB PO ONE (00:30)
--- NOTE | 2021-04-20 00:37 | NUR ---
Dr. Henderson examining patient.
[2021-04-20] MEDS ORDERED: NACL 0.9% 1,000 ML IV ONE ×3 (00:50→03:45)
[2021-04-20] MEDS ORDERED: CEFEPIME 2,000 MG in DEXTROSE 5% 100 ML IV ONE (00:50)
[2021-04-20] MEDS ORDERED: CEFEPIME 2,000 MG VIAL IV ONE (00:56)
[2021-04-20 00:58] LABS: BASOPHILS % (AUTO) 0.5 % (0.0-2.0); EOSINOPHILS # (AUTO) 0.1 K/uL (0-0.4); EOSINOPHILS % (AUTO) 1.1 % (0.0-4.0); HEMATOCRIT 35.2 % (36-52); HEMOGLOBIN 11.8 g/dL (12.0-18.0); LYMPHOCYTES % (AUTO) 9.9 % (20.5-51.1); MEAN CORPUSCULAR HEMOGLOBIN 31 pg (27-31); MEAN CORPUSCULAR HGB CONC 34 g/dL (33-37); MEAN CORPUSCULAR VOLUME 93.6 fL (80-94); MONOCYTES # (AUTO) 0.7 K/uL (0.8-1.0); MONOCYTES % (AUTO) 7.3 % (1.7-9.3); NEUTROPHILS # (AUTO) 8.1 K/uL (1.8-7.7); NEUTROPHILS % (AUTO) 81.2 % (42.2-75.2); PLATELET COUNT (AUTO) 122 K/uL (140-450); RED BLOOD CELL COUNT(AUTO) 3.76 MIL/uL (4.20-6.10); RED CELL DISTRIBUTION WIDTH 14.7 % (11.6-13.7)
[2021-04-20] MEDS ORDERED: MORPHINE SULFATE 4 MG/ML SYR IVP ONE (01:00)
[2021-04-20] MEDS ORDERED: ONDANSETRON 4 MG/2 ML VIAL IVP ONE (01:00)
[2021-04-20] MEDS ORDERED: hydrALAZINE 20 MG/ML VIAL IVP ONE (01:00)
--- NOTE | 2021-04-20 01:15 | NUR ---
X-Ray at bedside.
[2021-04-20 02:25] LABS: ANION GAP 19.3 (8-16); CARBON DIOXIDE 27.3 mmol/L (21-32); POTASSIUM 4.6 mmol/L (3.5-5.1)
[2021-04-20 02:32] LABS: CREATININE 8.7 mg/dL (0.6-1.3)
[2021-04-20] MEDS ORDERED: PIPERACILLIN/TAZOBACTAM 2.25 GM in DEXTROSE 5% 50 ML IV SCH ×5 (05:00→21:00)
[2021-04-20] MEDS ORDERED: PIPERACILLIN/TAZOBACTAM 2.25 GM in DEXTROSE 5% 50 ML IV ONE (05:00)
[2021-04-20] MEDS ORDERED: PIPERACILLIN/TAZOBACTAM 2.25 GM VIAL IV ONE (06:26)
[2021-04-20] MEDS ORDERED: INSU100S22 SUBQ (06:59)
[2021-04-20] MEDS ORDERED: GABA100C PO (06:59)
--- NOTE | 2021-04-20 07:15 | NUR ---
RECEIVED REPORT FROM BRE CONN. ASSUMED CARE AT THIS TIME.
--- NOTE | 2021-04-20 07:35 | NUR ---
Moni luis in [facility] - 04/20/21 at 0735 by ELIZABETH [id number]
--- NOTE | 2021-04-20 07:50 | NUR ---
Patient will be admitted to care of DR. MANUEL. Admited to Med/Surg. Will go to room 119B. Belongings list completed. Report to
--- NOTE | 2021-04-20 07:50 | NUR ---
RECEIVED REPORT FROM ER. PATIENT TO BE TRANSFERRED TO [facility] FROM ER. PATIENT CHIEF COMPLAINT OF HEADACHE, FEVER, AND NAUSEA. PER ER, PATIENT WAS COMPLAINING OF HEADACHE AND FEVER UPON ADMISSION TO ER, PATIENT WAS MEDICATED, AND HAS NOT COMPLAINED OF HEADACHE OR FEVER SINCE MEDICATION. PATIENT IS A DIALYSIS PATIENT. HE HAS L ARM FISTULA, HAS HX OF DM, HTN, AND KIDNEY TRANSPLANT. PER ER, PATIENT RECEIVED A BOLUS OF NS, HE RECEIVED ZOSYN, HYDRALAZINE, MORPHINE, AND ZOFRAN ALL IN THE ER. AWAITING PATIENT TRANSFER TO [facility] UNIT.
--- NOTE | 2021-04-20 08:35 | NUR ---
PATIENT ARRIVED ON [facility] [[email or web address]] UNIT. PATIENT IS ALERT AND ORIENTED X4. RESPIRATIONS ARE EVEN AND UNLABORED. PATIENT IS ON ROOM AIR. NO SIGNS OF DISTRESS NOTED. PATIENT ABD IS SOFT, ROUND, NON-TENDER, AND NON-DISTENDED WITH BOWEL SOUNDS PRESENT. PATIENT IS CONTINENT OF BOWEL AND BLADDER. PATIENT SKIN IS WARM, AND DRY. PATIENT HAS L FOOT HEEL WOUND, STATES HE HAS HAD IT FOR A BIT AND HE USUALLY COVERS IT WITH GAUZE. PATIENT HAS L ARM FISTULA, STATES HE RECEIVES DIALYSIS ON TUESDAY, TUESDAY, TUESDAY, AND TUESDAY. 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 PATIENT IS ABLE TO AMBULATE, HOWEVER, DOES SO USUALLY WITH A CANE. PATIENT HAS IV TO KANG, 20G. IV IS INTACT AND PATIENT. FAMILY AT BEDSIDE. CALL LIGHT WITHIN REACH. ALL SAFETY MEASURES IN PLACE. WILL CONTINUE TO MONITOR.
[2021-04-20 10:22] VITALS: BP 158/70
--- NOTE | 2021-04-20 10:45 | NUR ---
DID ROUNDS ON PATIENT. PATIENT SLEEPING AT THIS TIME. RESPIRATIONS ARE EVEN AND UNLABORED. NO SIGNS OF DISTRESS NOTED. WILL CONTINUE TO MONITOR.
--- NOTE | 2021-04-20 14:22 | NUR ---
PATIENT AWAKE WITH FAMILY AT BEDSIDE. PATIENT IS ALERT AND ORIENTED X4. HE IS ABLE TO VERBALIZE NEEDS TO STAFF. PATIENT STATES THAT HE HAS DM WOUND TO L HEEL. STATES THAT HE HAS HAD IT FOR A WHILE. STATES HE HAS NO PAIN. CHARGE NURSE ORDER WOUND CONSULT. WILL CONTINUE TO MONITOR.
[2021-04-20] MEDS ORDERED: ONDANSETRON 4 MG/2 ML VIAL IM/IVP PRN (14:35)
[2021-04-20] MEDS ORDERED: MORPHINE SULFATE 2 MG/ML SYR IVP PRN (14:35)
[2021-04-20] MEDS ORDERED: ZOLPIDEM 5 MG TAB PO PRN (14:35)
[2021-04-20] MEDS ORDERED: HYDROcodone/APAP 5/325 MG 1 TAB TAB PO PRN (14:35)
[2021-04-20] MEDS ORDERED: DOCUSATE SODIUM 100 MG GELCAP PO PRN (14:35)
[2021-04-20] MEDS ORDERED: ACETAMINOPHEN 325 MG TAB PO PRN (14:35)
[2021-04-20 15:10] LABS: PROTHROMBIN TIME 10.8 secs (10.8-13.4)
[2021-04-20 15:21] LABS: CHOL/HDL RATIO 1.8 (1-4.5); MAGNESIUM 2.2 mg/dL (1.8-2.4); THYROID STIMULATING HORMONE 0.87 uIU/mL (0.34-3.74)
[2021-04-20] MEDS ORDERED: MAG SULF 2000 MG/WATER PREMIX 50 ML IV PRN (15:50)
[2021-04-20] MEDS ORDERED: POTASSIUM CHLORIDE 10 MEQ TABER PO PRN (15:50)
--- NOTE | 2021-04-20 16:49 | NUR ---
DIALYSIS STARTED. PATIENT IS IN BED AT THIS TIME. NO SIGNS OF DISTRESS NOTED. FAMILY AT BEDSIDE. PATIENT STATES HE IS JUST TIRED AND WANTS TO SLEEP. WILL CONTINUE TO MONITOR.
[2021-04-20 18:22] VITALS: BP 166/68
--- NOTE | 2021-04-20 19:05 | NUR ---
ENDORSED PATIENT TO PROGRAM AIDE NURSE FOR CONTINUITY OF CARE. PATIENT IS STABLE.
[2021-04-20] MEDS ORDERED: APIXABAN 2.5 MG TAB PO SCH (21:00)
[2021-04-20] MEDS: AZITHROMYCIN 500 MG in DEXTROSE 5% 250 ML IV SCH (21:31)
[2021-04-20] MEDS: IBUPROFEN 600 MG TAB PO SCH (21:32)
[2021-04-20] MEDS: GABAPENTIN 100 MG CAP PO SCH (21:32)
[2021-04-20] MEDS: carvediloL 12.5 MG TAB PO SCH (21:39)
--- NOTE | 2021-04-20 23:24 | NUR ---
the patient had dialysis today , his output was 3L. he has hx of DM, ESRD, HTN , HIS BP WAS 166/87, His mes were administered, no complain fo pain , fever or chills , the patient stated that he feels well today after the dialysis. breathing is even and unlabored pateint education was provided about the disease process and risk factors. comfort and safety measures were provided
[2021-04-21 03:51] VITALS: BP 156/69
[2021-04-21] MEDS: LORazepam 2 MG/ML VIAL IM/IVP PRN (04:39)
[2021-04-21] MEDS: IBUPROFEN 600 MG TAB PO SCH ×3 (04:40→21:05)
[2021-04-21 05:10] LABS: BASOPHILS % (AUTO) 0.4 % (0.0-2.0); EOSINOPHILS # (AUTO) 0.2 K/uL (0-0.4); EOSINOPHILS % (AUTO) 3.2 % (0.0-4.0); HEMATOCRIT 34.3 % (36-52); HEMOGLOBIN 11.4 g/dL (12.0-18.0); LYMPHOCYTES # (AUTO) 1.7 K/uL (2.0-11.5); MEAN CORPUSCULAR HEMOGLOBIN 32 pg (27-31); MEAN CORPUSCULAR HGB CONC 33 g/dL (33-37); MEAN CORPUSCULAR VOLUME 95.1 fL (80-94); MONOCYTES # (AUTO) 0.6 K/uL (0.8-1.0); MONOCYTES % (AUTO) 9.4 % (1.7-9.3); NEUTROPHILS # (AUTO) 4.3 K/uL (1.8-7.7); PLATELET COUNT (AUTO) 116 K/uL (140-450); RED CELL DISTRIBUTION WIDTH 14.6 % (11.6-13.7); WHITE BLOOD COUNT (AUTO) 6.9 K/uL (4.8-10.8)
[2021-04-21 05:25] LABS: ANION GAP 15.1 (8-16); POTASSIUM 4.1 mmol/L (3.5-5.1)
[2021-04-21 05:28] LABS: CREATININE 7.5 mg/dL (0.6-1.3)
[2021-04-21] MEDS: LEVOTHYROXINE 0.025 MG TAB PO SCH (05:37)
--- NOTE | 2021-04-21 07:04 | NUR ---
the pateint stated that he can not sleep and feels anxious. ativan was given , he feels comfortable in his bed . no complain of sob or fever, or headache. comfort and safety measures are provided
--- NOTE | 2021-04-21 07:10 | NUR ---
RECEIVED REPORT FROM SENIOR SQL SERVER DEVELOPER RN FOR CONTINUITY OF CARE. PATIENT IS IN BED RESTING AT THIS TIME. RESPIRATIONS ARE EVEN AND UNLABORED. NO SIGNS OF DISTRESS NOTED. WILL CONTINUE TO MONITOR. CALL LIGHT WITHIN REACH. ALL SAFETY MEASURES IN PLACE.
[2021-04-21] MEDS ORDERED: predniSONE 5 MG TAB PO SCH (09:00)
--- NOTE | 2021-04-21 09:21 | NUR ---
PATIENT HAS BEEN SCREENED AND CATEGORIZED MODERATE NUTRITION RISK. PATIENT WILL BE SEEN WITHIN 3-5 DAYS OF ADMISSION. 04/22/21 04/24/[address]
[2021-04-21] MEDS: ISOSORBIDE DINITRATE 10 MG TAB PO SCH (09:52)
[2021-04-21] MEDS: DILTIAZEM 120 MG CAPER PO SCH (09:52)
[2021-04-21] MEDS: carvediloL 12.5 MG TAB PO SCH ×2 (09:52→21:04)
--- NOTE | 2021-04-21 09:52 | NUR ---
ADMINISTERED ALL SCHEDULED MEDICATIONS, PATIENT TOLERATED WELL. EDUCATED PATIENT ON MEDICATIONS BEING ADMINISTERED, PATIENT STATED AN UNDERSTANDING OF INFORMATION PROVIDED. PATIENT STATES THAT HE FEELS TIRED AT THIS TIME, STATES HE HAS NOT BEEN SLEEPING WELL. WILL CONTINUE TO MONITOR. CALL LIGHT WITHIN REACH. ALL SAFETY MEASURES IN PLACE.
[2021-04-21] MEDS: GABAPENTIN 100 MG CAP PO SCH ×2 (09:53→21:04)
[2021-04-21 10:06] LABS: T4 (THYROXINE) 7.8 ug/dL (4.5-12.0)
[2021-04-21 10:22] VITALS: BP 174/82
--- NOTE | 2021-04-21 11:35 | NUR ---
DID ROUNDS ON PATIENT. PATIENT IN BED ON HIS PHONE. RESPIRATIONS ARE EVEN AND UNLABORED. NO SIGNS OF DISTRESS NOTED. NO COMPLAINTS OF PAIN OR DISCOMFORT. WILL CONTINUE TO MONITOR. CALL LIGHT WITHIN REACH. ALL SAFETY MEASURES IN PLACE.
--- NOTE | 2021-04-21 12:22 | NUR ---
DC PLANNING: THE PATIENT ADMITTED THROUGH THE ED WITH C/O FEVER AND GENERALIZED BODY PAIN AND HEADACHE. THE PATIENT HAS A H/O ESRD AND IS FOLLOWED BY DR AMAYA. HE GOES TO DIALYSIS AT [facility] AT [address] [place] [address], . SCHEDULE IS M, W, F AT 4:30 AM AND HE USES NON-MEDICAL TRANSPORT. HE LIVES IN A SECOND STORY APARTMENT WITH HIS AND MOTHER IN [place], AND FOLLOWS UP WITH HIS PCP EVERY 1-2 MONTHS. HE IS ABLE TO AMBULATE WITH A CANE SHORT DISTANCES BEFORE BECOMING FATIGUED AND HAS DME OF A GLUCOMETER AND WC. THE PATIENT HAS HAD HOME HEALTH RECENTLY FOR WOUND CARE TO HIS LEFT FOOT BUT CAN'T REMEMBER WHICH AGENCY FOLLOWED HIM. HE WOULD LIKE A FWW WITH A SEAT, LUCIA CALLED [facility] FOR PRICING, THE FWW IS COVERED, OUT OF POCKET EXPENSE OF $75 FOR AN UPGRADE WITH SEAT. THE PATIENT IS PENDING COVID PCR RESULTS FOR A R/O BASED ON S/S, AND IS ON ROCEPHIN AND AZITHROMYCIN IV, NO O2. DC PLAN IS TO RETURN HOME WITH FAMILY, CM WILL FOLLOW FOR NEEDS. Addendum: 04/23/21 at 0960 by Milka Colvin CM DC PLANNING: WOUND CARE CONSULT NOTES REVIEWED. LUCIA SPOKE WITH THE PATIENTS UZMA TO ASK FOR THE NAME OF THE HOME HEALTH AGENCY THAT HAS BEEN DOING WOUND CARE FOR THE PATIENT. SHE DOESN'T REMEMBER THE NAME BUT WILL CALL LUCIA LATER TODAY WITH THE NAME AND NUMBER OF THE AGENCY. CM WILL FOLLOW FOR NEEDS. Addendum: 04/23/21 at 1425 by Milka Colvin CM DC PLANNING: PATIENT NO LONGER ON SERVICE WITH A HOME HEALTH AGENCY, REFERRAL FAXED TO [facility]. LUCIA APPROACHED BY [employer] ASKING THAT A 4 WHEEL WALKER BE ORDERED FOR THE PATIENT. LUCIA SPOKE WITH SCARLET AT [facility], THIS TYPE OF WALKER IS NOT COVERED BY MEDICARE, A FWW CAN BE CONVERTED FOR $75 OUT OF POCKET. LUCIA LEFT MESSAGE FOR THE PATIENT REGARDING THIS ASKING IF HE WANTS CM TO PROCEED. LUCIA WILL FOLLOW FOR NEEDS. Addendum: 04/24/21 at 1204 by Milka Colvin CM DC PLANNING: LUCIA SPOKE WITH SAMEER GARCIA, WOUND CARE INSTRUCTIONS ENTERED ALONG WITH ORDERS FOR WOUND CARE SUPPLIES. BOTH WERE FAXED TO [facility], LUCIA CONFIRMED WITH [facility] THAT THE PATIENT IS ACCEPTED ON SERVICE. CM ALSO SPOKE WITH THE PATIENT TO GIVE HIM INFORMATION ON THE HOME HEALTH AGENCY AND ARRANGEMENTS FOR WOUND CARE. DISCUSSED THE COST OF UPGRADING A FWW TO A 4 WHEEL WALKER, HE STATES HE WOULD LIKE TO THINK ABOUT. DC PLAN IS TO RETURN HOME TODAY WITH FAMILY, CM WILL FOLLOW FOR NEEDS.
--- NOTE | 2021-04-21 13:20 | NUR ---
ASSISTED PATIENT TO WALK TO RESTROOM. WAITED FOR PATIENT TO FINISH. NO COMPLAINTS OF PAIN OR DISCOMFORT. NO SIGNS OF DISTRESS NOTED. PATIENT TOLERATED WELL. WILL CONTINUE TO MONITOR.
[2021-04-21] MEDS: lisinopriL 5 MG TAB PO SCH (13:28)
--- NOTE | 2021-04-21 16:35 | NUR ---
DID ROUNDS ON PATIENT. PATIENT ON THE PHONE WITH HIS . NO COMPLAINTS OF PAIN OR DISCOMFORT. RESPIRATIONS EVEN AND UNLABORED. WILL CONTINUE TO MONITOR.
--- NOTE | 2021-04-21 17:25 | NUR ---
CLEANED AND CHANGED L HEEL WOUND DRESSING PER PATIENT REQUEST. PATIENT TOLERATED WELL.
--- NOTE | 2021-04-21 19:28 | NUR ---
ENDORSED PATIENT TO MORTGAGE SPECIALIST NURSE. PATIENT STABLE.
[2021-04-21] MEDS: AZITHROMYCIN 500 MG in DEXTROSE 5% 250 ML IV SCH (21:04)
[2021-04-21 22:36] VITALS: BP 156/78
--- NOTE | 2021-04-21 23:25 | NUR ---
the pateint is alert oriented x3, vitals are stable. scheduled meds were given . he stated that he can not sleep . ambien was given . the pateint sleeps comfortable in his bed. the pateint is scheduled for dialysis on 04/22/2021. breathin g is even and unlabored . comfort and safety measures were provided.
[2021-04-22 05:11] LABS: BASOPHILS % (AUTO) 0.2 % (0.0-2.0); EOSINOPHILS # (AUTO) 0.3 K/uL (0-0.4); EOSINOPHILS % (AUTO) 4.1 % (0.0-4.0); HEMATOCRIT 31.9 % (36-52); HEMOGLOBIN 10.5 g/dL (12.0-18.0); LYMPHOCYTES # (AUTO) 1.7 K/uL (2.0-11.5); LYMPHOCYTES % (AUTO) 23.1 % (20.5-51.1); MEAN CORPUSCULAR HEMOGLOBIN 32 pg (27-31); MEAN CORPUSCULAR HGB CONC 33 g/dL (33-37); MEAN CORPUSCULAR VOLUME 96.4 fL (80-94); MONOCYTES # (AUTO) 0.6 K/uL (0.8-1.0); MONOCYTES % (AUTO) 8.6 % (1.7-9.3); NEUTROPHILS # (AUTO) 4.7 K/uL (1.8-7.7); PLATELET COUNT (AUTO) 118 K/uL (140-450); RED BLOOD CELL COUNT(AUTO) 3.31 MIL/uL (4.20-6.10); RED CELL DISTRIBUTION WIDTH 14.2 % (11.6-13.7); WHITE BLOOD COUNT (AUTO) 7.4 K/uL (4.8-10.8)
[2021-04-22] MEDS: LEVOTHYROXINE 0.025 MG TAB PO SCH (05:26)
[2021-04-22] MEDS: IBUPROFEN 600 MG TAB PO SCH ×3 (05:26→20:47)
[2021-04-22 05:32] LABS: ANION GAP 18.6 (8-16); CARBON DIOXIDE 23.2 mmol/L (21-32); POTASSIUM 5.8 mmol/L (3.5-5.1)
[2021-04-22 05:39] LABS: MAGNESIUM 2.4 mg/dL (1.8-2.4); PHOSPHORUS 8.7 mg/dL (2.5-4.9)
[2021-04-22 05:53] LABS: CREATININE 9.4 mg/dL (0.6-1.3)
--- NOTE | 2021-04-22 06:49 | NUR ---
critical lab result, BS is 435 . phone call was placed to the MD at [phone] and voice message was left .
[2021-04-22] MEDS ORDERED: DEXTROSE 50% 50 ML SYR IVP PRN (07:05)
--- NOTE | 2021-04-22 07:25 | NUR ---
RECEIVED BEDSIDE REPORT FROM CROCODILE FARMER NURSE FOR CONTINUITY OF CARE. PT IS AWAKE AND ALERT. A&OX4. ON RA WITH BREATHING UNLABORED. AMBULATORY INDEPENDENTLY. SKIN IS WARM AND DRY. LEFT FOOT WOUND. IV IS IN THE RIGHT AC 20 GAUGE SALINE LOCKED. LEFT AV FISTULA IN PLACE FOR DIALYSIS. PT IS STABLE. DROPLET PRECAUTIONS IN PLACE.
[2021-04-22] MEDS: BLOOD GLUCOSE MONITORING 1 DEV DEV FS SCH ×4 (07:30→21:04)
[2021-04-22] MEDS ORDERED: INSULIN LISPRO 100 UNITS/ML VIAL SUBQ SCH (07:30)
[2021-04-22] MEDS ORDERED: INSULIN LANTUS 100 UNITS/ML 10 ML VIAL SUBQ SCH (07:30)
[2021-04-22 08:00] VITALS: BP 166/68
[2021-04-22] MEDS: GABAPENTIN 100 MG CAP PO SCH ×2 (08:27→20:49)
[2021-04-22] MEDS: DILTIAZEM 120 MG CAPER PO SCH (08:27)
[2021-04-22] MEDS: lisinopriL 5 MG TAB PO SCH (08:28)
[2021-04-22] MEDS: carvediloL 12.5 MG TAB PO SCH ×2 (08:28→20:47)
[2021-04-22] MEDS: ISOSORBIDE DINITRATE 10 MG TAB PO SCH (08:29)
--- NOTE | 2021-04-22 09:30 | NUR ---
PT IS RESTING WITH EYES CLOSED. HE IS RESPONSIVE AND ALERT. BREATHING IS UNLABORED AND EVEN. PATIENT IS STABLE AND NO SIGNS OF DISTRESS.
--- NOTE | 2021-04-22 11:20 | NUR ---
PT WAS GIVEN BENADRYL ORDERED FOR ITCHINESS DURING DIALYSIS. HD NURSE AT BEDSIDE ABOUT TO START DIAYLSIS. PT IS STABLE AT THIS TIME. WILL CONTINUE TO MONITOR.
--- NOTE | 2021-04-22 11:25 | NUR ---
WOUND CARE EVALUATION NOTE: LEFT FOOT WOUNDS ASSESSED WITH POC DISCUSSED WITH PT. PT. VERBALIZES UNDERSTANDING. POC DISCUSSED WITH PRIMARY RN AND DR. MANUEL. -LEFT MEDIAL HEEL DTI WITH BLOODY FLUIDS BLISTERING SKIN, SEROSANGUINEOUS DRAINAGE SEEPING OUT FROM WOUND EDGE, NO ODOR, NICOLAS WOUND SKIN INTACT NO ERYTHEMA, NO PAIN. -LEFT HEEL DIABETIC ULCER WITH FULL THICKNESS SKIN LOSS TO RIGHT HEEL 1X1X 0.2CM, 50% PINK GRANULAR TISSUE AND 50% YELLOW FIBROTIC, WOUND EDGE WITH HYPERKERATOSIS. NO PURULENCE, NO MALODOR. RECOMMENDATIONS: -PODIATRY CONSULT -CLEANSE LEFT HEEL WOUNDS WITH WOUND CARE SOLUTION, PAT DRY ,APPLY MOIST BETADINE JAVI. WITH ADAPTIC DRESSING, COVER WITH DRY DRESSING AND WRAP WITH KERLIX QD AND PRN IF SOILING -MAY DISCHARGE WOUND CARE SUPPLIES WITH PT.
--- NOTE | 2021-04-22 11:49 | NUR ---
BS READING IS 117. PT DOES NOT NEED INSULIN COVERAGE PER SLIDING SCALE.
[2021-04-22] MEDS: CALCIUM ACETATE 667 MG TAB PO SCH ×2 (12:23→18:05)
[2021-04-22] MEDS: GAUZE TP SCH (12:24)
--- NOTE | 2021-04-22 14:28 | NUR ---
DIALYSIS COMPLETE. 3.5 L OUT. PATIENT IS STABLE.
[2021-04-22 16:00] VITALS: BP 152/87
--- NOTE | 2021-04-22 19:30 | NUR ---
ENDORSED PT TO NIGHT NURSE. POC DISCUSSED. PT IS STABLE.
[2021-04-22] MEDS ORDERED: LOPERAMIDE 2 MG CAP PO PRN (20:40)
[2021-04-22] MEDS: AZITHROMYCIN 500 MG in DEXTROSE 5% 250 ML IV SCH (20:45)
[2021-04-22] MEDS: hydrALAZINE 25 MG TAB PO SCH (20:48)
[2021-04-22] MEDS: INSULIN LISPRO SLIDING SCALE 100 UNITS/ML VIAL SUBQ PRN (21:06)
--- NOTE | 2021-04-22 21:59 | NUR ---
the patient vitals are stable. pateint had dialysis on 04/22/2021, his ooutput is 3.6 l. breathing is even and unlabored . no complain of pain . sched meds were administered. bs 216 at 2100, insulin was given . comfort and safety measures are provided.
[2021-04-22] MEDS: LORazepam 2 MG/ML VIAL IM/IVP PRN (22:40)
--- NOTE | 2021-04-22 22:46 | NUR ---
the pateint is anxiou and ativan was given
[2021-04-23] VITALS: BP 135/79
[2021-04-23] MEDS: IBUPROFEN 600 MG TAB PO SCH ×3 (04:30→20:47)
[2021-04-23] MEDS: LEVOTHYROXINE 0.025 MG TAB PO SCH (04:31)
[2021-04-23 06:20] LABS: MAGNESIUM 2.3 mg/dL (1.8-2.4)
[2021-04-23 06:21] LABS: BASOPHILS % (AUTO) 0.3 % (0.0-2.0); EOSINOPHILS # (AUTO) 0.4 K/uL (0-0.4); EOSINOPHILS % (AUTO) 5.1 % (0.0-4.0); HEMATOCRIT 33.4 % (36-52); HEMOGLOBIN 11.1 g/dL (12.0-18.0); LYMPHOCYTES # (AUTO) 2.3 K/uL (2.0-11.5); LYMPHOCYTES % (AUTO) 29.1 % (20.5-51.1); MEAN CORPUSCULAR HEMOGLOBIN 32 pg (27-31); MEAN CORPUSCULAR HGB CONC 33 g/dL (33-37); MEAN CORPUSCULAR VOLUME 95.6 fL (80-94); MONOCYTES # (AUTO) 0.6 K/uL (0.8-1.0); MONOCYTES % (AUTO) 7.7 % (1.7-9.3); NEUTROPHILS # (AUTO) 4.5 K/uL (1.8-7.7); NEUTROPHILS % (AUTO) 57.8 % (42.2-75.2); PLATELET COUNT (AUTO) 148 K/uL (140-450); RED CELL DISTRIBUTION WIDTH 14.5 % (11.6-13.7); WHITE BLOOD COUNT (AUTO) 7.9 K/uL (4.8-10.8)
[2021-04-23 06:22] LABS: ANION GAP 16.6 (8-16); CARBON DIOXIDE 24.2 mmol/L (21-32); POTASSIUM 4.8 mmol/L (3.5-5.1)
--- NOTE | 2021-04-23 07:10 | NUR ---
RECEIVED PATIENT FROM ABSORPTION OPERATOR NURSE FOR CONTINUITY OF CARE. PATIENT IS A/A/O X4. RESPIRATORY EVEN AND UNLABORED, ON ROOM AIR. NO SIGN OF DISTRESS NOTED. SKIN WARM, DRY, NON DIAPHORETIC. IV ON RIGHT AC 20G, INTACT AND PATENT, SALINE LOCK. LEFT HEEL DECUBITUS ULCER WITH DRESSING INTACT. PATIENT DENIES ANY PAIN OR DISCOMFORT. ABLE TO MAKE NEED KNOWN. PLAN OF CARE DISCUSSED, PATIENT VERBALIZED UNDERSTANDING. PRECAUTION IN PLACE. CALL LIGHT WITHIN REACH. WILL CONTINUE TO MONITOR.
--- NOTE | 2021-04-23 07:50 | NUR ---
LATE ENTRY- ZOSYN 2.25GM IVPB, NORMAL SALINE 0.9% IV FLUIDS RUNNING AT 120 ML, CEFEPIME 200MG IV AND NS RUNNING @100 ML DISCONTINUED AT 0750.
[2021-04-23 08:00] VITALS: BP 149/72
[2021-04-23] MEDS: BLOOD GLUCOSE MONITORING 1 DEV DEV FS SCH ×4 (08:17→21:00)
[2021-04-23] MEDS: CALCIUM ACETATE 667 MG TAB PO SCH ×3 (08:17→17:43)
--- NOTE | 2021-04-23 08:17 | NUR ---
BLOOD SUGAR CHECK 163, 2UNITS OF INSULIN GIVEN, SCHEDULE MEDICATIONS GIVEN WITH EDUCATION. PATIENT VERBALIZED UNDERSTANDING. PATIENT TOLERATED WELL. NO SIGN OF DISTRESS NOTED. PRECAUTION IN PLACE. CALL LIGHT WITHIN REACH. WILL CONTINUE TO MONITOR.
[2021-04-23] MEDS: INSULIN LISPRO SLIDING SCALE 100 UNITS/ML VIAL SUBQ PRN ×4 (08:18→21:09)
[2021-04-23] MEDS: carvediloL 12.5 MG TAB PO SCH ×2 (08:21→20:46)
[2021-04-23] MEDS: ISOSORBIDE DINITRATE 10 MG TAB PO SCH (08:22)
[2021-04-23] MEDS: GABAPENTIN 100 MG CAP PO SCH ×2 (08:22→20:45)
[2021-04-23] MEDS: hydrALAZINE 25 MG TAB PO SCH ×2 (08:23→20:47)
[2021-04-23] MEDS: DILTIAZEM 120 MG CAPER PO SCH (08:25)
--- NOTE | 2021-04-23 10:35 | NUR ---
ROUND CHECK. PATIENT IS RESTING IN BED, NO SIGN OF DISTRESS NOTED. CALL LIGHT WITHIN REACH. WILL CONTINUE TO MONITOR.
--- NOTE | 2021-04-23 12:24 | NUR ---
BLOOD SUGAR CHECK 162, 2 UNITS OF INSULIN GIVEN, SCHEDULE MEDICATION GIVEN WITH EDUCATION. PATIENT VERBALIZED UNDERSTANDING. PATIENT TOLERATED WELL. NO SIGN OF DISTRESS NOTED. CALL LIGHT WITHIN REACH, WILL CONTINUE TO MONITOR.
[2021-04-23] MEDS: GAUZE TP SCH (12:28)
--- NOTE | 2021-04-23 13:51 | NUR ---
RECEIVED TORB FROM DR. MANUEL FOR CCHO 60GM AND RENAL DIET AND NEPHRO-AMOS DAILY
--- NOTE | 2021-04-23 14:20 | NUR ---
PATIENT IS RESTING IN BED, NO SIGN OF DISTRESS NOTED. CALL LIGHT WITHIN REACH. WILL CONTINUE TO MONITOR.
--- NOTE | 2021-04-23 14:34 | NUR ---
04/23/21 RD INITIAL ASSESSMENT COMPLETED PLEASE REFER TO NUTRITION ASSESSMENT UNDER CARE ACTIVITY FOR ESTIMATED NUTRITIONAL NEEDS. 1. [facility] RENAL DIET TOLERATED 2. RECOMMENDED NEPHRO-AMOS DAILY 3. RD TO FOLLOW-UP 5-7 DAYS, LOW RISK NIKOLAY SNEED, RD
--- NOTE | 2021-04-23 15:10 | NUR ---
CALL [facility] HD NURSE, TO NOTIFY THAT PATIENT HAS ORDER FOR HD TOMORROW. HD NURSE AWARE.
--- NOTE | 2021-04-23 15:30 | NUR ---
ENDORSED PATIENT TO [facility] FOR CONTINUITY OF CARE DUE TO CHANGE THE ASSIGNMENT. PATIENT IS STABLE.
[2021-04-23 16:00] VITALS: BP 136/84
--- NOTE | 2021-04-23 16:40 | NUR ---
BG 243
--- NOTE | 2021-04-23 18:58 | NUR ---
MD EDUCATED PT REGARDING PROCEDURE , PT VERBALIZED NO QUESTIONS OR CONCERN . CONSENT SIGNED . ALL SAFETY MEASURES IN PLACE
--- NOTE | 2021-04-23 19:15 | NUR ---
PT ENDORSED TO CARAMEL CUTTER HELPER RN FOR CONTINUITY OF CARE, PT INSTABLE CONDITION ALL SAFETY MEASURES ARE IN PLACE.
--- NOTE | 2021-04-23 19:16 | NUR ---
RECEIVED PATIENT FROM DAY SHIFT NURSE FOR CONTINUITY OF CARE. PT IS AWAKE , ALERT AND ORIENTED.PT ON ROOM AIR. NO SIGN OF DISTRESS NOTED. . IV ON RIGHT AC 20G, INTACT AND PATENT.LEFT HEEL DECUBITUS ULCER WITH DRESSING INTACT. PATIENT DENIES ANY PAIN. ABLE TO MAKE NEED KNOWN.SAFETY PRECAUTIONS IN PLACE. CALL LIGHT WITHIN REACH. WILL CONTINUE TO MONITOR.
[2021-04-23] MEDS: AZITHROMYCIN 500 MG in DEXTROSE 5% 250 ML IV SCH (20:45)
--- NOTE | 2021-04-23 21:15 | NUR ---
DUE MEDS GIVEN.PT TOLERATED WELL.NO ACUTE DRUG REACTION NOTED. FAMILY AT BEDSIDE. PROVIDED NEW GOWN AND BLANKET. ALL NEEDS ATTENDED. ALL PRECAUTION IN PLACE. WILL CONTINUE TO MONITOR.
--- NOTE | 2021-04-23 23:35 | NUR ---
ROUND MADE. PT AMBULATED TO THE RESTROOM. PT NOT IN ANY DISTRESS. DENIES PAIN AND DISCOMFORT. CALL LIGHT WITHIN REACH.WILL CONTINUE TO MONITOR.
[2021-04-24] VITALS: BP 153/59
--- NOTE | 2021-04-24 01:40 | NUR ---
PT ASLEEP IN BED. BREATHING UNLABORED AND EQUAL. ALL PRECAUTIONS IN PLACE. WILL CONTINUE TO MONITOR.
--- NOTE | 2021-04-24 02:30 | NUR ---
PT ASLEEP. NO S/SX OF DISTRESS NOTED. BREATHING EQUAL AND UNLABORED. CALL LIGHT WITHIN REACH. WILL CONTINUE TO MONITOR
[2021-04-24 04:00] VITALS: BP 170/81
[2021-04-24 05:34] LABS: BASOPHILS % (AUTO) 0.6 % (0.0-2.0); EOSINOPHILS # (AUTO) 0.3 K/uL (0-0.4); EOSINOPHILS % (AUTO) 4.6 % (0.0-4.0); HEMATOCRIT 33.4 % (36-52); LYMPHOCYTES # (AUTO) 2.2 K/uL (2.0-11.5); LYMPHOCYTES % (AUTO) 30.6 % (20.5-51.1); MEAN CORPUSCULAR HEMOGLOBIN 31 pg (27-31); MEAN CORPUSCULAR HGB CONC 33 g/dL (33-37); MEAN CORPUSCULAR VOLUME 94.6 fL (80-94); MONOCYTES # (AUTO) 0.4 K/uL (0.8-1.0); MONOCYTES % (AUTO) 5.8 % (1.7-9.3); NEUTROPHILS # (AUTO) 4.2 K/uL (1.8-7.7); NEUTROPHILS % (AUTO) 58.4 % (42.2-75.2); PLATELET COUNT (AUTO) 154 K/uL (140-450); RED BLOOD CELL COUNT(AUTO) 3.53 MIL/uL (4.20-6.10); RED CELL DISTRIBUTION WIDTH 13.9 % (11.6-13.7); WHITE BLOOD COUNT (AUTO) 7.1 K/uL (4.8-10.8)
[2021-04-24 05:35] LABS: ANION GAP 21.8 (8-16); POTASSIUM 5.8 mmol/L (3.5-5.1)
[2021-04-24] MEDS: LEVOTHYROXINE 0.025 MG TAB PO SCH (05:41)
[2021-04-24] MEDS: IBUPROFEN 600 MG TAB PO SCH ×2 (05:41→13:26)
[2021-04-24] MEDS: BLOOD GLUCOSE MONITORING 1 DEV DEV FS SCH ×2 (05:41→13:26)
[2021-04-24 05:48] LABS: MAGNESIUM 2.5 mg/dL (1.8-2.4)
[2021-04-24] MEDS: INSULIN LISPRO SLIDING SCALE 100 UNITS/ML VIAL SUBQ PRN (05:50)
--- NOTE | 2021-04-24 05:50 | NUR ---
DUE MEDS GIVEN. BS WAS 168. GIVEN 2UNITS OF INSULIN . PT TOLERATED WELL. CALL LIGHT WITHIN REACH.WILL CONTINUE TO MONITOR.
[2021-04-24 05:55] LABS: CREATININE 10.1 mg/dL (0.6-1.3)
[2021-04-24 06:02] LABS: PHOSPHORUS 9.7 mg/dL (2.5-4.9)
--- NOTE | 2021-04-24 06:17 | NUR ---
PT STABLE. NO ACUTE EVENTS THROUGHOUT THE NIGHT.PT NOT IN ANY DISTRESS AND NO COMPLAINS AT THIS TIME. ALL NEEDS ATTENDED.WILL ENDORSE TO AM SHIFT NURSE. WILL CONTINUE TO MONITOR.
--- NOTE | 2021-04-24 07:35 | NUR ---
PT ENDORSED TO AM SHIFT NURSE FOR CONTINUITY OF CARE.PT STABLE.SIGNING OFF
[2021-04-24] MEDS ORDERED: VIT-B COMP/VIT-C/FOLIC ACID 1 TAB PO SCH (09:00)
--- NOTE | 2021-04-24 11:21 | NUR ---
ATTEMPTED TO SEE PATIENT FOR PHYSICAL THERAPY TREATMENT HOWEVER PATIENT UNDERGOING DIALYSIS TREATMENT WITH 2.5 HOURS REMAINING. WILL FOLLOW UP TOMORROW IF APPROPRIATE. GIVEN POST-OP SHOE PER ORDERS. RN AWARE.
[2021-04-24] MEDS ORDERED: CALCIUM ACETATE 667 MG TAB PO SCH (12:00)
[2021-04-24] MEDS: carvediloL 12.5 MG TAB PO SCH (12:04)
[2021-04-24] MEDS: GABAPENTIN 100 MG CAP PO SCH (12:04)
[2021-04-24] MEDS: DILTIAZEM 120 MG CAPER PO SCH (12:05)
[2021-04-24] MEDS: ISOSORBIDE DINITRATE 10 MG TAB PO SCH (12:05)
[2021-04-24] MEDS: hydrALAZINE 25 MG TAB PO SCH (12:06)
[2021-04-24] MEDS: GAUZE TP SCH (13:26)
[2021-04-24] MEDS ORDERED: hydrALAZINE 25 MG TAB PO PRN (14:25)
[2021-04-24] MEDS ORDERED: CARV12.52 PO (14:40)
[2021-04-24] MEDS ORDERED: HYDR-4420 PO (14:40)
[2021-04-24] MEDS ORDERED: CALC667C3 PO (14:40)
[2021-04-24] MEDS ORDERED: DILT120C95 PO (14:40)
[2021-04-24] MEDS ORDERED: INSU100S22 SUBQ (14:40)
[2021-04-24] MEDS ORDERED: LEVO750T51 PO (14:44)
--- NOTE | 2021-04-24 17:50 | NUR ---
Patient discharged and was given education on medication, disease process and follow up with home health for wound care. Verbalized understanding and taken off the unit in wheeled chair.
== END 2021-04-24 16:50 | disposition home health service (06) | DRG 871 ==
LOC: MED 04-20 → MMU 04-20 03:36 → MED 04-20 03:36 → MTU 04-20 06:01
PROC: 5A1D70Z Performance of Urinary Filtration, Intermittent, Less than 6 Hours Per Day (ICD-10-PCS; principal; 2021-04-20)
PROC: 5A1D70Z Performance of Urinary Filtration, Intermittent, Less than 6 Hours Per Day (ICD-10-PCS; 2021-04-22)
PROC: 5A1D70Z Performance of Urinary Filtration, Intermittent, Less than 6 Hours Per Day (ICD-10-PCS; 2021-04-23)
PROC: 5A1D70Z Performance of Urinary Filtration, Intermittent, Less than 6 Hours Per Day (ICD-10-PCS; 2021-04-24)
DX: A41.9 Sepsis, unspecified organism (principal); J18.9 Pneumonia, unspecified organism; N17.0 Acute kidney failure with tubular necrosis; N18.6 End stage renal disease; J96.00 Acute respiratory failure, unspecified whether with hypoxia or hypercapnia; D84.9 Immunodeficiency, unspecified; Z94.0 Kidney transplant status; I12.0 Hypertensive chronic kidney disease with stage 5 chronic kidney disease or end stage renal disease; E03.9 Hypothyroidism, unspecified; M19.90 Unspecified osteoarthritis, unspecified site; Z20.822 Contact with and (suspected) exposure to COVID-19; I70.90 Unspecified atherosclerosis; D63.1 Anemia in chronic kidney disease; E83.39 Other disorders of phosphorus metabolism; E87.5 Hyperkalemia; E11.40 Type 2 diabetes mellitus with diabetic neuropathy, unspecified; L89.629 Pressure ulcer of left heel, unspecified stage; E11.22 Type 2 diabetes mellitus with diabetic chronic kidney disease; Z86.718 Personal history of other venous thrombosis and embolism; Z88.1 Allergy status to other antibiotic agents; Z90.49 Acquired absence of other specified parts of digestive tract; Z99.2 Dependence on renal dialysis; Z88.8 Allergy status to other drugs, medicaments and biological substances
CPT/HCPCS: 36415; 71045; 73630; 80048; 80053; 83036; 83605; 83735; 83880; 84100; 84134; 84436; 84443; 85025; 85610; 85730; 87040; 87081; 87804; 96365; 96375; 96376; 97116; 97163-GP; 99291; J0360; J0456; J0692; J0696; J1644; J1815; J2060; J2270; J2405; J2543; J7060; Q0092; Q0163; U0003